=== PATIENT | male | born 1960 | race Native Hawaiian/Other Pacific Islander ===

== ENCOUNTER 2017-07-22 03:42 | Inpatient (IN) | payer OTHER ==
[2017-07-22] MEDS ORDERED: ACETAMINOPHEN TAB 500 MG TAB PO STA (04:03)
[2017-07-22] MEDS ORDERED: PIPERACILLIN-TAZOBACTAM 3.375 GM in DEXTROSE/WATER 1 50ML.BAG IVPB STA (04:03)
[2017-07-22] MEDS: SODIUM CHLORIDE 0.9% 500 ML IV SCH ×4 (04:26→06:17)
[2017-07-22 04:35] LABS: Basophils % (A) 1 %; Eosinophils # (A) 0.1 k/uL (0-0.7); Eosinophils % (A) 2 %; HCT 36.5 % (39.0-53.0); HGB 12.5 gm/dL (13.0-17.5); Lymphocytes % (A) 17 %; MCH 28.1 pg (25.0-35.0); MCHC 34.2 g/dL (31.0-37.0); MCV 82.3 fL (80.0-100.0); Mean Platelet Volume 7.4; Monocytes # (A) 0.1 k/uL (0-1.0); Monocytes % (A) 3 %; Neutrophils # (A) 4.3 k/uL (1.3-7.7); Neutrophils % (A) 77 %; Platelet Count 166 k/uL (150-450); RBC 4.43 m/uL (4.30-5.90); RDW 12.1 % (11.5-15.5); WBC 5.6 k/uL (3.8-10.6)
--- NOTE | 2017-07-22 04:38 | ED ---
General Adult HPI - General Chief complaint: Nausea/Vomiting/Diarrhea Stated complaint: VOMITING Time Seen by Provider: 07/22/17 03:56 Source: patient Mode of arrival: ambulatory Limitations: no limitations - History of Present Illness Initial comments: 6 years old male he went to bed last night feeling fine medical 1 AM he threw up multiple times he couldn't stop shaking and he had a high fever on arrival to the ER his temp is 1 or 3.7 and his pulse rate is 129. His any headaches no neck stiffness no sore throat he has been coughing and bringing up some phlegm no chest pain no pleuritic chest pain no abdominal pain no frequency urgency dysuria no symptoms of TIA or CVA - Related Data Allergies Allergy/AdvReac Type Severity Reaction Status Date / Time No Known Allergies Allergy Verified 07/22/17 03:50 Review of Systems ROS Statement: Those systems with pertinent positive or pertinent negative responses have been documented in the HPI. ROS Other: All systems not noted in ROS Statement are negative. Past Medical History Past Medical History: Diabetes Mellitus, Myocardial Infarction ([place]) History of Any Multi-Drug Resistant Organisms: None Reported Past Surgical History: Orthopedic Surgery Past Psychological History: No Psychological Hx Reported Smoking Status: Former smoker Past Alcohol Use History: Daily Past Drug Use History: None Reported General Exam - General Exam Comments Initial Comments: General: The patient is awake and alert, in no distress, and does not appear acutely ill. Skin: Skin is warm and dry and no rashes or lesions are noted. Eye: Pupils are equal, round and reactive to light, extra-ocular movements are intact; there is normal conjunctiva bilaterally. Ears, nose, mouth and throat: There are moist mucous membranes and no oral lesions. Neck: The neck is supple, there is no tenderness or JVD. Cardiovascular: There is a regular rate and rhythm. No murmur, rub or gallop is appreciated. Noticed tachycardia Respiratory: To auscultation bilateral, decrease breath sounds bilateral Gastrointestinal: Soft, non-distended, non-tender abdomen without masses or organomegaly noted. There is no rebound or guarding present. Bowel sounds are unremarkable. Back: There is no tenderness to palpation in the midline. There is no obvious deformity. Tenderness noticed over the lower back flanks bilateral Musculoskeletal: Normal ROM, no tenderness, There is no pedal edema. There is no calf tenderness or swelling. No cords were appreciated. Neurological: CN II-XII intact, Cranial nerves III through XII are intact. There are no obvious motor or sensory deficits. Coordination appears grossly intact. Speech is normal. Psychiatric: Cooperative, appropriate mood & affect, normal judgment. Limitations: no limitations Course Vital Signs 07/22/17 07/22/17 03:46 05:00 Temperature 103.7 F H 102.8 F H Pulse Rate 129 H 113 H Respiratory 20 16 Rate Blood Pressure 186/86 121/65 O2 Sat by Pulse 95 95 Oximetry EKG Findings - EKG Comments: EKG Findings:: KG is a sinus tachycardia ventricular rate is 121 WA interval is 174 QRS duration is 80 QT/QTc is 322/457 review of this EKG reveals some ST depression in lead 1 and lead to a T-wave inversion in lead aVL noticed ST depression in V5 and V6 as well Medical Decision Making - Lab Data Result diagrams: 07/22/17 04:21 07/22/17 04:21 Lab Results 07/22/17 07/22/17 07/22/17 Range/Units 04:21 04:21 04:21 WBC 5.6 (3.8-10.6) k/uL RBC 4.43 (4.30-5.90) m/uL Hgb 12.5 L (13.0-17.5) gm/dL Hct 36.5 L (39.0-53.0) % MCV 82.3 (80.0-100.0) fL MCH 28.1 (25.0-35.0) pg MCHC 34.2 (31.0-37.0) g/dL RDW 12.1 (11.5-15.5) % Plt Count 166 (150-450) k/uL Neutrophils % 77 % Lymphocytes % 17 % Monocytes % 3 % Eosinophils % 2 % Basophils % 1 % Neutrophils # 4.3 (1.3-7.7) k/uL Lymphocytes # 1.0 (1.0-4.8) k/uL Monocytes # 0.1 (0-1.0) k/uL Eosinophils # 0.1 (0-0.7) k/uL Basophils # 0.0 (0-0.2) k/uL PT (9.0-12.0) sec INR (<1.2) APTT (22.0-30.0) sec Sodium 134 L (137-145) mmol/L Potassium 4.3 (3.5-5.1) mmol/L Chloride 94 L (98-107) mmol/L Carbon Dioxide 23 (22-30) mmol/L Anion Gap 17 mmol/L BUN 18 (9-20) mg/dL Creatinine 0.80 (0.66-1.25) mg/dL Est GFR (CKD-EPI)AfAm >90 (>60 ml/min/1.73 sqM) Est GFR (CKD-EPI)NonAf >90 (>60 ml/min/1.73 sqM) Glucose 178 H (74-99) mg/dL Plasma Lactic Acid Esteban 2.8 H* (0.7-2.0) mmol/L Calcium 9.4 (8.4-10.2) mg/dL Total Bilirubin 0.6 (0.2-1.3) mg/dL AST 39 (17-59) U/L ALT 38 (21-72) U/L Alkaline Phosphatase 73 (38-126) U/L Troponin I (0.000-0.034) ng/mL Total Protein 7.1 (6.3-8.2) g/dL Albumin 4.0 (3.5-5.0) g/dL Influenza Type A RNA (Not Detectd) Influenza Type B (PCR) (Not Detectd) 07/22/17 07/22/17 07/22/17 Range/Units 04:21 04:21 04:21 WBC (3.8-10.6) k/uL RBC (4.30-5.90) m/uL Hgb (13.0-17.5) gm/dL Hct (39.0-53.0) % MCV (80.0-100.0) fL MCH (25.0-35.0) pg MCHC (31.0-37.0) g/dL RDW (11.5-15.5) % Plt Count (150-450) k/uL Neutrophils % % Lymphocytes % % Monocytes % % Eosinophils % % Basophils % % Neutrophils # (1.3-7.7) k/uL Lymphocytes # (1.0-4.8) k/uL Monocytes # (0-1.0) k/uL Eosinophils # (0-0.7) k/uL Basophils # (0-0.2) k/uL PT 10.0 (9.0-12.0) sec INR 1.0 (<1.2) APTT 22.5 (22.0-30.0) sec Sodium (137-145) mmol/L Potassium (3.5-5.1) mmol/L Chloride (98-107) mmol/L Carbon Dioxide (22-30) mmol/L Anion Gap mmol/L BUN (9-20) mg/dL Creatinine (0.66-1.25) mg/dL Est GFR (CKD-EPI)AfAm (>60 ml/min/1.73 sqM) Est GFR (CKD-EPI)NonAf (>60 ml/min/1.73 sqM) Glucose (74-99) mg/dL Plasma Lactic Acid Esteban (0.7-2.0) mmol/L Calcium (8.4-10.2) mg/dL Total Bilirubin (0.2-1.3) mg/dL AST (17-59) U/L ALT (21-72) U/L Alkaline Phosphatase (38-126) U/L Troponin I 0.013 (0.000-0.034) ng/mL Total Protein (6.3-8.2) g/dL Albumin (3.5-5.0) g/dL Influenza Type A RNA Not Detected (Not Detectd) Influenza Type B (PCR) Not Detected (Not Detectd) Critical Care Time Total Critical Care Time: 30 Critical Care Time: Vision came in with a fever of 103.7 his pulse rate was 129 She was 186/86 with the sensitivity minute with the 2 L of fluid her lactate is 2.8 chest x-ray showed bilateral pneumonia probably heading towards sepsis giving him some Zosyn along with some Zithromax to cover the atypicals he agreed for the admission he would not need the ICU because we did give him lots of fluids and I'm sure that we'll correct the lactate down to normal laboratory will do okay at stepdown Disposition Clinical Impression: Fever, Tachycardia, Sepsis Disposition: ADMITTED IP TO THIS [facility] Condition: Good Referrals: Hardik Lockett MD [Primary Care Provider] - 1-2 days
[2017-07-22 04:40] LABS: Partial Thromboplastin Time 22.5 sec (22.0-30.0)
[2017-07-22 04:44] LABS: ALT 38 U/L (21-72); AST 39 U/L (17-59); Alkaline Phosphatase 73 U/L (38-126); Anion Gap 17 mmol/L; Blood Urea Nitrogen 18 mg/dL (9-20); Calcium 9.4 mg/dL (8.4-10.2); Carbon Dioxide 23 mmol/L (22-30); Chloride 94 mmol/L (98-107); Glucose 178 mg/dL (74-99); Potassium 4.3 mmol/L (3.5-5.1); Sodium 134 mmol/L (137-145); Total Bilirubin 0.6 mg/dL (0.2-1.3); Total Protein 7.1 g/dL (6.3-8.2)
--- NOTE | 2017-07-22 05:18 | XR ---
INDICATION: Fever COMPARISON: None FINDINGS: PA and lateral views of the chest are obtained. There are diffuse alveolar opacities in the left upper lobe. There are patchy alveolar opacities in the right upper/right middle lobe. There is no pleural effusion or pneumothorax. Heart size and pulmonary vascularity are normal. There are no acute osseous findings. IMPRESSION: Bilateral pneumonia, most extensive in the left upper lobe.
--- NOTE | 2017-07-22 05:19 | XR ---
INDICATION: Abdominal pain COMPARISON: None FINDINGS: Single frontal view of the abdomen demonstrates a normal bowel gas pattern. No evidence of organomegaly, abnormal calcifications or obvious soft tissue masses. The osseous structures are intact. IMPRESSION: Normal KUB.
[2017-07-22] MEDS ORDERED: PNEUMONIA PROTOCOL UTILIZED 1 EACH MISC PO PRN (05:27)
[2017-07-22] MEDS ORDERED: AZITHROMYCIN 500 MG in SODIUM CHLORIDE 0.9% 250 ML IVPB STA (05:39)
[2017-07-22] MEDS: SODIUM CHLORIDE 0.9% 1,000 ML IV SCH ×2 (05:51→16:45)
[2017-07-22] MEDS ORDERED: ACETAMINOPHEN TAB 500 MG TAB PO PRN (06:13)
[2017-07-22 06:33] LABS: Glucose,Whole Blood 139 mg/dL (75-99)
[2017-07-22 06:41] VITALS: BMI 27.6
[2017-07-22] MEDS ORDERED: PIPERACILLIN-TAZOBACTAM 3.375 GM in DEXTROSE/WATER 1 50ML.BAG IVPB SCH ×2 (08:00→12:00)
[2017-07-22 11:27] LABS: Appearance,Urine Clear (Clear); Bilirubin,Urine Negative (Negative); Blood,Urine Negative (Negative); Color,Urine Light Yellow; Glucose,Urine (UA) Trace (Negative); Ketones,Urine Negative (Negative); Leukocyte Esterase,Urine Negative (Negative); Nitrite,Urine Negative (Negative); PH, Urine 5.5 (5.0-8.0); Protein,Urine Trace (Negative); Specific Gravity,Urine 1.008 (1.001-1.035); Urobilinogen,Urine <2.0 mg/dL (<2.0)
--- NOTE | 2017-07-22 14:21 | P.HPIM ---
History of Present Illness 56-year-old male came in with the nausea vomiting today has high-grade fever was coughing with telemetry sputum production chest x-ray was read as a bilateral pneumonia although there is no significant lobar consolidative process when I reviewed the chest x-ray. His nodule nausea vomiting resolved patient was comparing of whitish fraction on clinical exam patient doesn't have any bronchophony egophony or crackles on lung exam patient is feeling well wanted to go home. Patient mild lactic is doses of 2.5 patient will transfer out of ICU causing his high-grade fevers last night patient wanted a day. Zosyn will be discontinued patient was started on Rocephin. Patient denied dysuria denied any headache photophobia. Denied any flulike illness influenza testing is negative. Patient nausea vomiting and diarrhea resolved at this time Review of Systems REVIEW OF SYSTEMS: CONSTITUTIONAL: No fever, no malaise, no fatigue. HEENT: No recent visual problems or hearing problems. Denied any sore throat. CARDIOVASCULAR: No chest pain, orthopnea, PND, no palpitations, no syncope. PULMONARY: No shortness of breath, no hemoptysis. GASTROINTESTINAL: As mentioned in HPI NEUROLOGICAL: No headaches, no weakness, no numbness. HEMATOLOGICAL: Denies any bleeding or petechiae. GENITOURINARY: Denies any burning micturition, frequency, or urgency. MUSCULOSKELETAL/RHEUMATOLOGICAL: Denies any joint pain, swelling, or any muscle pain. ENDOCRINE: Denies any polyuria or polydipsia. The rest of the 14-point review of systems is negative. Past Medical History Past Medical History: Diabetes Mellitus, Myocardial Infarction ([place]) Last Myocardial Infarction Date:: 2007 History of Any Multi-Drug Resistant Organisms: None Reported Past Surgical History: Heart Catheterization With Stent, Orthopedic Surgery Additional Past Surgical History / Comment(s): stent X1 LAD Past Anesthesia/Blood Transfusion Reactions: No Reported Reaction Date of Last Stent Placement:: 2007 Past Psychological History: No Psychological Hx Reported Smoking Status: Former smoker Past Alcohol Use History: Daily Past Drug Use History: None Reported - Past Family History Mother Family Medical History: Diabetes Mellitus Medications and Allergies Home Medications Medication Instructions Recorded Confirmed Type Empagliflozin [Jardiance] 10 mg PO DAILY 07/22/17 07/22/17 History metFORMIN HCL [Glucophage] 1,000 mg PO BID-W/MEALS 07/22/17 07/22/17 History sitaGLIPtin [Januvia] 100 mg PO DAILY 07/22/17 07/22/17 History Allergies Allergy/AdvReac Type Severity Reaction Status Date / Time No Known Allergies Allergy Verified 07/22/17 03:50 Physical Exam Vitals: Vital Signs Temp Pulse Resp BP Pulse Ox 07/22/17 13:10 100 18 137/70 99 07/22/17 09:20 137/71 07/22/17 09:10 102 H 18 137/71 98 07/22/17 09:00 101 H 28 H 137/71 99 07/22/17 08:50 100 24 137/71 98 07/22/17 08:40 101 H 23 137/71 99 07/22/17 08:30 101 H 24 128/71 98 07/22/17 08:20 102 H 24 128/71 98 07/22/17 08:10 104 H 23 128/71 99 07/22/17 08:00 98.7 F 105 H 23 128/71 98 07/22/17 07:50 107 H 22 128/71 97 07/22/17 07:40 106 H 24 128/71 98 07/22/17 07:30 106 H 24 140/70 98 07/22/17 07:20 106 H 24 140/70 98 07/22/17 07:10 107 H 24 140/70 96 07/22/17 07:00 107 H 24 140/70 98 07/22/17 06:40 99.3 F 108 H 22 140/70 96 07/22/17 06:31 96 07/22/17 06:18 102.4 F H 109 H 18 133/71 95 07/22/17 05:51 111 H 18 133/65 95 07/22/17 05:00 102.8 F H 113 H 16 121/65 95 07/22/17 04:50 18 07/22/17 03:46 103.7 F H 129 H 20 186/86 95 Intake and Output 07/21/17 07/22/17 07/22/17 22:59 06:59 14:59 Intake Total 100 Balance 100 Intake: Intake, IV Titration 100 Amount Sodium Chloride 0.9% 1, 100 000 ml @ 100 mls/hr IV . Q10H [facility] Rx#:[id number] Other: Voiding Method Toilet # Voids 0 Weight 70.8 kg PHYSICAL EXAMINATION: GENERAL: The patient is alert and oriented x3, not in any acute distress. Well developed, well nourished. HEENT: Pupils are round and equally reacting to light. EOMI. No scleral icterus. No conjunctival pallor. Normocephalic, atraumatic. No pharyngeal erythema. No thyromegaly. CARDIOVASCULAR: S1 and S2 present. No murmurs, rubs, or gallops. PULMONARY: Chest is clear to auscultation, no wheezing or crackles. ABDOMEN: Soft, nontender, nondistended, normoactive bowel sounds. No palpable organomegaly. MUSCULOSKELETAL: No joint swelling or deformity. EXTREMITIES: No cyanosis, clubbing, or pedal edema. NEUROLOGICAL: Gross neurological examination did not reveal any focal deficits. SKIN: No rashes. Results CBC & Chem 7: 07/22/17 04:21 07/22/17 04:21 Labs: Abnormal Lab Results - Last 24 Hours (Table) 07/22/17 07/22/17 07/22/17 Range/Units 04:21 04:21 04:21 Hgb 12.5 L (13.0-17.5) gm/dL Hct 36.5 L (39.0-53.0) % Sodium 134 L (137-145) mmol/L Chloride 94 L (98-107) mmol/L Glucose 178 H (74-99) mg/dL POC Glucose (mg/dL) (75-99) mg/dL Plasma Lactic Acid Esteban 2.8 H* (0.7-2.0) mmol/L Urine Protein (Negative) Urine Glucose (UA) (Negative) 07/22/17 07/22/17 Range/Units 06:31 11:10 Hgb (13.0-17.5) gm/dL Hct (39.0-53.0) % Sodium (137-145) mmol/L Chloride (98-107) mmol/L Glucose (74-99) mg/dL POC Glucose (mg/dL) 139 H (75-99) mg/dL Plasma Lactic Acid Esteban (0.7-2.0) mmol/L Urine Protein Trace H (Negative) Urine Glucose (UA) Trace H (Negative) Thrombosis Risk Factor Assmnt - Choose All That Apply Any of the Below Risk Factors Present?: Yes Each Factor Represents 1 point: Age 41-60 years, Obesity (BMI >25), Sepsis (< 1month) Other Risk Factors: No Other congenital or acquired thrombophilia - If yes, enter type in comment: No Thrombosis Risk Factor Assessment Total Risk Factor Score: 3 Thrombosis Risk Factor Assessment Level: Moderate Risk Assessment and Plan Plan: -Possible sepsis with lactic acidosis: Probably secondary to viral gastroenteritis my suspicion is low that patient has pneumonia. Since patient had high-grade fevers will watch him for 24 hours patient will be continued on Rocephin as mentioned above. Patient doesn't have any clinical signs or symptoms of pneumonia. -Type 2 diabetes mellitus: Patient stopped using all his oral hypoglycemic agents patient's blood sugars will be monitored with sliding scale insulin. -Lactic is doses: May be related to sepsis or intravascular depletion from nausea vomiting
[2017-07-22] MEDS: cefTRIAXone IN SWFI 1,000 MG/10 ML SYRINGE IVP SCH (15:49)
[2017-07-22 17:09] LABS: Glucose,Whole Blood 224 mg/dL (75-99)
[2017-07-22] MEDS: INSULIN ASPART 100 UNIT/ML 1 ML 10 ML VIAL SQ SCH ×3 (17:53→21:04)
[2017-07-22 20:37] LABS: Glucose,Whole Blood 264 mg/dL (75-99)
[2017-07-22 23:10] LABS: Hemoglobin A1C 9.5 % (4.0-6.0)
[2017-07-23] MEDS: SODIUM CHLORIDE 0.9% 1,000 ML IV SCH (01:37)
[2017-07-23 02:03] VITALS: RESP 18
[2017-07-23 07:24] LABS: Glucose,Whole Blood 141 mg/dL (75-99)
[2017-07-23 07:28] VITALS: BP 155/88; PULSE 94; TEMP 97.5
--- NOTE | 2017-07-23 07:41 | XR ---
EXAMINATION TYPE: XR chest 2V DATE OF EXAM: 07/23/2017 COMPARISON: Chest x-ray from yesterday. HISTORY: Pneumonia progress study TECHNIQUE: Frontal and lateral views of the chest are obtained. FINDINGS: There are persistent diffuse left lung and right basilar opacities. No new focal airspace opacity, pleural effusion, or pneumothorax is seen bilaterally. The cardiac silhouette size is stabl e and within normal limits. The osseous structures are intact. IMPRESSION: Multifocal left lung and right basilar infiltrates redemonstrated. No new infiltrates ar e seen. No significant change from prior.
[2017-07-23] MEDS: cefTRIAXone IN SWFI 1,000 MG/10 ML SYRINGE IVP SCH (07:51)
[2017-07-23] MEDS: INSULIN ASPART 100 UNIT/ML 1 ML 10 ML VIAL SQ SCH (07:51)
[2017-07-23 08:29] LABS: HCT 34.6 % (39.0-53.0); HGB 11.6 gm/dL (13.0-17.5); MCH 28.5 pg (25.0-35.0); MCHC 33.6 g/dL (31.0-37.0); MCV 84.9 fL (80.0-100.0); Mean Platelet Volume 6.9; Platelet Count 175 k/uL (150-450); RBC 4.08 m/uL (4.30-5.90); RDW 12.2 % (11.5-15.5); WBC 8.7 k/uL (3.8-10.6)
[2017-07-23 08:56] LABS: Anion Gap 14 mmol/L; Blood Urea Nitrogen 10 mg/dL (9-20); Calcium 8.8 mg/dL (8.4-10.2); Carbon Dioxide 23 mmol/L (22-30); Chloride 103 mmol/L (98-107); Glucose 162 mg/dL (74-99); Sodium 140 mmol/L (137-145)
--- NOTE | 2017-07-23 17:11 | P.DS ---
Providers Date of admission: 07/22/17 05:43 Attending physician: Stacy Pires Primary care physician: [facility] Course: 56-year-old admitted with signs and symptoms of sepsis believed secondary to viral illness. Although patient has some infiltrate on the chest x-ray although not conclusive for pneumonia the same time I cannot or completely rule out cardiac 1 pneumonia because of which I'll discharge him on Ceftin patient had low-grade fever last night as well but patient wanted to go home. His symptoms resolved patient looks well. His diarrhea resolved. Leukocytosis improved patient stopped his oral hypoglycemic agent patient with blood sugars are bit elevated patient will be discharged on metformin and follow up with primary care physician as an outpatient. PHYSICAL EXAMINATION: GENERAL: The patient is alert and oriented x3, not in any acute distress. Well developed, well nourished. HEENT: Pupils are round and equally reacting to light. EOMI. No scleral icterus. No conjunctival pallor. Normocephalic, atraumatic. No pharyngeal erythema. No thyromegaly. CARDIOVASCULAR: S1 and S2 present. No murmurs, rubs, or gallops. PULMONARY: Chest is clear to auscultation, no wheezing or crackles. ABDOMEN: Soft, nontender, nondistended, normoactive bowel sounds. No palpable organomegaly. MUSCULOSKELETAL: No joint swelling or deformity. EXTREMITIES: No cyanosis, clubbing, or pedal edema. NEUROLOGICAL: Gross neurological examination did not reveal any focal deficits. SKIN: No rashes. For other chronic medical problems hospitalization course please refer to my HPI from yesterday. Patient Condition at Discharge: Good Plan - Discharge Summary Discharge Rx Participant: Yes New Discharge Prescriptions: New Cefuroxime Axetil [Ceftin] 500 mg PO BID #12 tab Continue metFORMIN HCL [Glucophage] 1,000 mg PO BID-W/MEALS #60 tablet Discontinued sitaGLIPtin [Januvia] 100 mg PO DAILY Empagliflozin [Jardiance] 10 mg PO DAILY Discharge Medication List Cefuroxime Axetil [Ceftin] 500 mg PO BID #12 tab 07/23/17 [Rx] metFORMIN HCL [Glucophage] 1,000 mg PO BID-W/MEALS #60 tablet 07/23/17 [Rx] Follow up Appointment(s)/Referral(s): Janina Baer PAC [REFERRING] - 07/30/17 9:30 am () Patient Instructions/Handouts: Pneumonia (DC) Activity/Diet/Wound Care/Special Instructions: Cardiac, diabetic diet. Activity as tolerated. Discharge Disposition: HOME SELF-CARE
== END 2017-07-23 11:02 | disposition home or self-care (01) | DRG 871 ==
LOC: EC 03:42 → 6ICU 05:43 → 4MS4W 16:08
PROVIDERS: ADMIT Hospitalist; ATTEND Hospitalist
DX: A41.89 Other specified sepsis (principal); J18.9 Pneumonia, unspecified organism; A08.4 Viral intestinal infection, unspecified; E11.9 Type 2 diabetes mellitus without complications; I25.2 Old myocardial infarction; I25.10 Atherosclerotic heart disease of native coronary artery without angina pectoris; Z87.891 Personal history of nicotine dependence; Z95.5 Presence of coronary angioplasty implant and graft; Z79.84 Long term (current) use of oral hypoglycemic drugs; Z79.899 Other long term (current) drug therapy; Z83.3 Family history of diabetes mellitus
CPT/HCPCS: 36415; 71046; 74018; 80048; 80053; 81003; 83036; 83605; 84484; 85025; 85027; 85610; 85730; 87040; 87070; 87086; 87205; 87502; 93005; 96365; 96366; 99285

== ENCOUNTER → 2017-12-10 | Outpatient (CLI) | payer OTHER ==
--- NOTE | 2017-12-10 16:44 | XR ---
Left shoulder HISTORY: Left shoulder pain 3 views of the left shoulder Acromioclavicular joint shows arthropathy change. Some mild spurring also present the glenohumeral delma int. Alignment and bone mineralization essentially maintained, pseudocysts are present within the hum eral head. Left lung apex as visualized is normal. No fracture or dislocation. IMPRESSION: Correlate for impingement, there are arthropathy changes as described. Shoulder MRI may b e of benefit.
== END | disposition home or self-care (01) ==
LOC: RADXRMAIN 14:27
PROVIDERS: ATTEND Family Medicine
DX: M19.012 Primary osteoarthritis, left shoulder (principal)

== ENCOUNTER 2020-09-08 | Inpatient (IN) | payer OTHER | END 2020-09-08 20:35 | disposition E | PROVIDERS: ADMIT Internal Medicine | PROC: 0BH17EZ Insertion of Endotracheal Airway into Trachea, Via Natural or Artificial Opening (ICD-10-PCS; principal; 2020-09-08) | PROC: 5A1935Z Respiratory Ventilation, Less than 24 Consecutive Hours (ICD-10-PCS; 2020-09-08) | PROC: 5A1213Z Performance of Cardiac Pacing, Intermittent (ICD-10-PCS; 2020-09-08) | PROC: 5A12012 Performance of Cardiac Output, Single, Manual (ICD-10-PCS; 2020-09-08) | PROC: 4A133B1 Monitoring of Arterial Pressure, Peripheral, Percutaneous Approach (ICD-10-PCS; 2020-09-08) | PROC: 4A133J1 Monitoring of Arterial Pulse, Peripheral, Percutaneous Approach (ICD-10-PCS; 2020-09-08) | DX: I21.19 ST elevation (STEMI) myocardial infarction involving other coronary artery of inferior wall (principal); I46.9 Cardiac arrest, cause unspecified; I44.2 Atrioventricular block, complete; R00.1 Bradycardia, unspecified; R11.10 Vomiting, unspecified; I95.9 Hypotension, unspecified; I25.10 Atherosclerotic heart disease of native coronary artery without angina pectoris; E11.40 Type 2 diabetes mellitus with diabetic neuropathy, unspecified; E78.5 Hyperlipidemia, unspecified; I48.91 Unspecified atrial fibrillation; I12.9 Hypertensive chronic kidney disease with stage 1 through stage 4 chronic kidney disease, or unspecified chronic kidney disease; E11.22 Type 2 diabetes mellitus with diabetic chronic kidney disease; N18.9 Chronic kidney disease, unspecified; I25.2 Old myocardial infarction; Z98.61 Coronary angioplasty status; Z87.891 Personal history of nicotine dependence | CPT/HCPCS: 36415; 71045; 80053; 83735; 84443; 84484; 85025; 85610; 85730; 92950; 93005; 94002; 96374; 96375; 99291 ==